=== PATIENT | female | born 1970 | race African-American/Black ===

== ENCOUNTER 2018-11-23 12:21 | Emergency (ER) | payer MEDICAID, OTHER ==
[~2018-11-23] VITALS: Ht 160 cm; Wt 90.7 kg
[2018-11-23 13:22] LABS: BASOPHILS % (AUTO) 1 % (0-10); EOSINOPHILS # (AUTO) 0.2 10^3/uL (0.0-0.3); EOSINOPHILS % (AUTO) 3 % (0-10); HEMATOCRIT 37 % (35-52); HEMOGLOBIN 12.7 G/DL (11.5-16.0); LYMPHOCYTES # (AUTO) 2.5 X 10^3 (1.0-4.0); LYMPHOCYTES % (AUTO) 46 % (12-44); MEAN CORPUSCULAR HEMOGLOBIN 30 PG (25-34); MEAN CORPUSCULAR HGB CONC 34 G/DL (32-36); MEAN CORPUSCULAR VOLUME 87 FL (80-99); MEAN PLATELET VOLUME 9.6 FL (7.4-10.4); MONOCYTES # (AUTO) 0.6 X 10^3 (0.0-1.0); MONOCYTES % (AUTO) 10 % (0-12); NEUTROPHILS # (AUTO) 2.2 X 10^3 (1.8-7.8); NEUTROPHILS % (AUTO) 40 % (42-75); PLATELET COUNT 380 10^3/uL (130-400); RED CELL DISTRIBUTION WIDTH 13.1 % (10.0-14.5); WHITE BLOOD COUNT 5.5 10^3/uL (4.3-11.0)
--- NOTE | 2018-11-23 13:24 | ED General ---
General Chief Complaint: Abdominal/GI Problems Stated Complaint: COUGH/VOMITING Nursing Triage Note: Ambulatory to rm 3. Pt reports vomiting x two weeks. Pt states, "everything I eat/drink I throw up." Pt reports only being able to keep cold foods/liquids down. Pt also reports cough for one month. Pt c/o clear mucous. Nursing Sepsis Screen: No Definite Risk Source of Information: Patient Exam Limitations: No Limitations History of Present Illness Date Seen by Provider: Nov 23, 2018 Time Seen by Provider: 13:23 Allergies and Home Medications Allergies Coded Allergies: aspirin (Verified Allergy, Unknown, swelling, 11/23/18) Past Cbxpsni-Mhckdb-Ykjduh Hx Patient Social History Alcohol Use: Denies Use Recreational Drug Use: No Smoking Status: Never a Smoker Recent Foreign Travel: No Contact w/Someone Who Travel: No Recent Infectious Disease Expo: No Recent Hopitalizations: No Physical Abuse: No Sexual Abuse: No Seasonal Allergies Seasonal Allergies: Yes Past Medical History Surgeries: Yes Tubal Ligation Respiratory: Yes Asthma Cardiac: Yes Hypertension Neurological: No Last Menstrual Period: Sep 22, 2018 DELI MANAGER History: Tubal Ligation Genitourinary: No Gastrointestinal: No Musculoskeletal: Yes Chronic Back Pain Endocrine: Yes Hypothyroidsim, Diabetes, Non-Insulin dep HEENT: No Cancer: No Psychosocial: Yes Anxiety, Depression Integumentary: No Blood Disorders: No Adverse Reaction/Blood Tranf: No Physical Exam Vital Signs Vital Signs - First Documented 11/23/18 12:43 Temp 98.0 Pulse 91 Resp 19 B/P (MAP) 139/93 (108) Pulse Ox 99 O2 Delivery Room Air Capillary Refill : Less Than 3 Seconds Height, Weight, BMI Height: 5'3.00" Weight: 200lbs. oz. 90.182225fa; BMI Method:Stated Progress/Results/Core Measures Suspected Sepsis Recent Fever Within 48 Hours: No Infection Criteria Present: None New/Unexplained Altered Menta: No Sepsis Screen: No Definite Risk SIRS Temperature:98.0 Pulse: 91 Respiratory Rate: 19 Laboratory Tests 11/23/18 13:00: White Blood Count 5.5 Blood Pressure 139 /93 Mean: 108 Laboratory Tests 11/23/18 13:00: Creatinine 0.96, Platelet Count 380, Total Bilirubin 0.2 Results/Orders Lab Results Laboratory Tests Test 11/23/18 13:00 11/23/18 13:30 Range/Units White Blood Count 5.5 4.3-11.0 10^3/uL Red Blood Count 4.24 L 4.35-5.85 10^6/uL Hemoglobin 12.7 11.5-16.0 G/DL Hematocrit 37 35-52 % Mean Corpuscular Volume 87 80-99 FL Mean Corpuscular Hemoglobin 30 25-34 PG Mean Corpuscular Hemoglobin Concent 34 32-36 G/DL Red Cell Distribution Width 13.1 10.0-14.5 % Platelet Count 380 130-400 10^3/uL Mean Platelet Volume 9.6 7.4-10.4 FL Neutrophils (%) (Auto) 40 L 42-75 % Lymphocytes (%) (Auto) 46 H 12-44 % Monocytes (%) (Auto) 10 0-12 % Eosinophils (%) (Auto) 3 0-10 % Basophils (%) (Auto) 1 0-10 % Neutrophils # (Auto) 2.2 1.8-7.8 X 10^3 Lymphocytes # (Auto) 2.5 1.0-4.0 X 10^3 Monocytes # (Auto) 0.6 0.0-1.0 X 10^3 Eosinophils # (Auto) 0.2 0.0-0.3 10^3/uL Basophils # (Auto) 0.0 0.0-0.1 10^3/uL Sodium Level 135 135-145 MMOL/L Potassium Level 3.8 3.6-5.0 MMOL/L Chloride Level 102 98-107 MMOL/L Carbon Dioxide Level 23 21-32 MMOL/L Anion Gap 10 5-14 MMOL/L Blood Urea Nitrogen 10 7-18 MG/DL Creatinine 0.96 0.60-1.30 MG/DL Estimat Glomerular Filtration Rate > 60 BUN/Creatinine Ratio 10 Glucose Level 238 H 70-105 MG/DL Calcium Level 9.7 8.5-10.1 MG/DL Corrected Calcium 9.8 8.5-10.1 MG/DL Total Bilirubin 0.2 0.1-1.0 MG/DL Aspartate Amino Transf (AST/SGOT) 19 5-34 U/L Alanine Aminotransferase (ALT/SGPT) 22 0-55 U/L Alkaline Phosphatase 85 40-136 U/L Total Protein 7.3 6.4-8.2 GM/DL Albumin 3.9 3.2-4.5 GM/DL Amylase Level 93 25-125 U/L Lipase 13 8-78 U/L Urine Color YELLOW Urine Clarity CLEAR Urine pH 6 5-9 Urine Specific [place] 1.020 1.016-1.022 Urine Protein 2+ H NEGATIVE Urine Glucose (UA) 3+ H NEGATIVE Urine Ketones NEGATIVE NEGATIVE Urine Nitrite POSITIVE H NEGATIVE Urine Bilirubin NEGATIVE NEGATIVE Urine Urobilinogen NORMAL NORMAL MG/DL Urine Leukocyte Esterase 2+ H NEGATIVE Urine RBC (Auto) 5+ H NEGATIVE Urine RBC 10-25 H /HPF Urine WBC 5-10 H /HPF Urine Squamous Epithelial Cells 10-25 H /HPF Urine Crystals NONE /LPF Urine Bacteria LARGE H /HPF Urine Casts NONE /LPF Urine Mucus NEGATIVE /LPF Urine Culture Indicated YES Micro Results Microbiology 11/23/18 Influenza Types A,B Antigen (BONNIE) - Final, Complete My Orders Orders - SEJAL PIERRE Comprehensive Metabolic Panel (11/23/18 13:10) Lipase (11/23/18 13:10) Amylase (11/23/18 13:10) Ua Culture If Indicated (11/23/18 13:10) Saline Lock/Iv-Start (11/23/18 13:10) Cbc With Automated Diff (11/23/18 13:10) Influenza A And B Antigens (11/23/18 13:10) Chest Pa/Lat (2 View) (11/23/18 13:22) Urine Culture (11/23/18 13:30) Vital Signs/I&O 11/23/18 12:43 Temp 98.0 Pulse 91 Resp 19 B/P (MAP) 139/93 (108) Pulse Ox 99 O2 Delivery Room Air Capillary Refill : Less Than 3 Seconds Blood Pressure Mean: 108 Departure Impression Primary Impression: Urinary tract infection Additional Impression: Bronchitis Disposition: 01 HOME, SELF-CARE Condition: Stable/Unchanged Departure-Patient Inst. Decision time for Depature: 14:58 Referrals: NO,LOCAL PHYSICIAN (PCP/Family) Primary Care Physician Patient Instructions: Acute Bronchitis in Adults, Urinary Tract Infection, Adult (DC) Add. Discharge Instructions: Take medications as directed. Drink plenty of clear liquids to stay hydrated and help flush out your kidneys and urinary tract. Return back to the emergency room for worsening symptoms or concerns as needed. Follow-up with her primary care provider within 1 week for recheck. All discharge instructions reviewed with patient and/or family. Voiced understanding. Scripts Albuterol Sulfate (VENTOLIN HFA) 1 Puff Puff 2 PUFF IH Q4H PRN for COUGH, #1 INHALER 1 PUFF = 90 MCG Prov: SEJAL PIERRE 11/23/18 Cefdinir (Cefdinir) 300 Mg Capsule 300 MG PO BID for 7 Days, #14 CAP Prov: SEJAL PIERRE 11/23/18 Methylprednisolone (Medrol) 4 Mg Tab.ds.pk 4 MG PO UD, #1 PKG Prov: SEJAL PIERRE 11/23/18 SEJAL PIERRE Nov 23, 2018 13:24
[2018-11-23 13:35] LABS: ALANINE AMINOTRANSFERASE 22 U/L (0-55); ALBUMIN 3.9 GM/DL (3.2-4.5); ALKALINE PHOSPHATASE 85 U/L (40-136); AMYLASE 93 U/L (25-125); BILIRUBIN,TOTAL 0.2 MG/DL (0.1-1.0); BUN/CREATININE RATIO 10; CALCIUM 9.7 MG/DL (8.5-10.1); CARBON DIOXIDE 23 MMOL/L (21-32); CHLORIDE 102 MMOL/L (98-107); CREATININE SERUM 0.96 MG/DL (0.60-1.30); GFR ESTIMATED > 60; GLUCOSE 238 MG/DL (70-105); LIPASE 13 U/L (8-78); POTASSIUM 3.8 MMOL/L (3.6-5.0); SODIUM 135 MMOL/L (135-145); TOTAL PROTEIN 7.3 GM/DL (6.4-8.2)
[2018-11-23 13:44] LABS: BILIRUBIN,URINE NEGATIVE (NEGATIVE); CLARITY,URINE CLEAR; COLOR,URINE YELLOW; GLUCOSE, URINE (UA) 3+ (NEGATIVE); KETONES,URINE NEGATIVE (NEGATIVE); LEUKOCYTE ESTERASE ,URINE 2+ (NEGATIVE); NITRITE,URINE POSITIVE (NEGATIVE); PH,URINE 6 (5-9); PROTEIN,URINE 2+ (NEGATIVE); UROBILINOGEN,URINE NORMAL (NORMAL)
[2018-11-23 13:56] LABS: BACTERIA,URINE LARGE /HPF
--- NOTE | 2018-11-23 14:29 | Diagnostic Imaging Report ---
EXAM: CHEST PA/LAT (2 VIEW) INDICATION: Cough. COMPARISON: None. FINDINGS: Normal heart size and pulmonary vascularity. No dense consolidation, pleural effusion or pneumothorax. No acute osseous findings. IMPRESSION: Negative chest. Dictated by: Dictated on workstation # [id number]
[2018-11-23] MEDS ORDERED: RT-ALBUINH IH (15:00)
[2018-11-23] MEDS ORDERED: METH4TAB PO (15:00)
[2018-11-23] MEDS ORDERED: CEFD300C3 PO (15:00)
[2018-11-23 15:07] VITALS: BP 146/109
== END 2018-11-23 15:12 | disposition home or self-care (01) ==
LOC: ER 12:24
DX: N39.0 Urinary tract infection, site not specified (principal); J40 Bronchitis, not specified as acute or chronic; J45.909 Unspecified asthma, uncomplicated; I10 Essential (primary) hypertension; E03.9 Hypothyroidism, unspecified; E11.9 Type 2 diabetes mellitus without complications; F41.9 Anxiety disorder, unspecified; F32.9 Major depressive disorder, single episode, unspecified; Z79.82 Long term (current) use of aspirin; Z98.51 Tubal ligation status
CPT/HCPCS: 36415; 71046; 80053; 81000; 82150; 83690; 85025; 87077; 87088; 87804

== ENCOUNTER 2019-02-14 20:22 | Emergency (ER) | payer MEDICAID ==
[~2019-02-14] VITALS: Ht 160 cm; Wt 90.7 kg
[~2019-02-14 20:22] MED LIST: CEFD300C3 PO; METH4TAB PO; RT-ALBUINH IH
--- OUTSIDE RECORDS SUMMARY | 2019-02-14 20:27 | XMS REPORT | Continuity of Care Document ---
Author Organization Unknown Address Unknown Allergies Active Description Code Type Severity Reaction Onset Reported/Identified Relationship to Patient Clinical Status Yes aspirin [id number] Drug Allergy Unknown swelling 11/23/2018 Medications There is no data. Problems Date Dx Coded Attending Type Code Diagnosis Diagnosed By 11/23/2018 SEJAL PIERRE Ot E03.9 HYPOTHYROIDISM, UNSPECIFIED 11/23/2018 ARSENIO PIERREIS Ot E11.9 TYPE 2 DIABETES MELLITUS WITHOUT COMPLIC 11/23/2018 SEJAL PIERRE Ot F32.9 MAJOR DEPRESSIVE DISORDER, SINGLE EPISOD 11/23/2018 IGNACIO SEJAL Ot F41.9 ANXIETY DISORDER, UNSPECIFIED 11/23/2018 IGNACIO SEJAL Ot I10 ESSENTIAL (PRIMARY) HYPERTENSION 11/23/2018 IGNACIO SEJAL Ot J40 BRONCHITIS, NOT SPECIFIED ACUTE OR CH 11/23/2018 IGNACIO, SEJAL Ot J45.909 UNSPECIFIED ASTHMA, UNCOMPLICATED 11/23/2018 IGNACIO SEJAL Ot N39.0 URINARY TRACT INFECTION, SITE NOT SPECIF 11/23/2018 IGNACIO SEJAL Ot R11.10 VOMITING, UNSPECIFIED 11/23/2018 IGNACIO SEJAL Ot 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 11/23/2018 IGNACIO SEJAL Ot Z98.51 TUBAL LIGATION STATUS 11/25/2018 IGNACIO SEJAL Ot E03.9 HYPOTHYROIDISM, UNSPECIFIED 11/25/2018 BERNDAYA SEJAL Ot E11.9 TYPE 2 DIABETES MELLITUS WITHOUT COMPLIC 11/25/2018 IGNACIO SEJAL Ot F32.9 MAJOR DEPRESSIVE DISORDER, SINGLE EPISOD 11/25/2018 IGNACIO SEJAL Ot F41.9 ANXIETY DISORDER, UNSPECIFIED 11/25/2018 BERNOT, SEJAL Ot I10 ESSENTIAL (PRIMARY) HYPERTENSION 11/25/2018 BERNDAYA, SEJAL Ot J40 BRONCHITIS, NOT SPECIFIED ACUTE OR CH 11/25/2018 IGNACIO SEJAL Ot J45.909 UNSPECIFIED ASTHMA, UNCOMPLICATED 11/25/2018 SEJAL PIERRE Ot N39.0 URINARY TRACT INFECTION, SITE NOT SPECIF 11/25/2018 SEJAL PIERRE Ot R11.10 VOMITING, UNSPECIFIED 11/25/2018 SEJAL PIERRE Ot 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 11/25/2018 SEJAL PIERRE Ot Z98.51 TUBAL LIGATION STATUS Procedures There is no data. Results Test Result Range Complete blood count (CBC) with automated white blood cell (WBC) differential - 11/23/18 13:00 Blood leukocytes automated count (number/volume) 5.5 10*3/uL 4.3-11.0 Blood erythrocytes automated count (number/volume) 4.24 10*6/uL 4.35-5.85 Venous blood hemoglobin measurement (mass/volume) 12.7 g/dL 11.5-16.0 Blood hematocrit (volume fraction) 37 % 35-52 Automated erythrocyte mean corpuscular volume 87 [foz_us] 80-99 Automated erythrocyte mean corpuscular hemoglobin (mass per erythrocyte) 30 pg 25-34 Automated erythrocyte mean corpuscular hemoglobin concentration measurement (mass/volume) 34 g/dL 32-36 Automated erythrocyte distribution width ratio 13.1 % 10.0- 14.5 Automated blood platelet count (count/volume) 380 10*3/uL 130-400 Automated blood platelet mean volume measurement 9.6 [foz_us] 7.4-10.4 Automated blood neutrophils/100 leukocytes 40 % 42-75 Automated blood lymphocytes/100 leukocytes 46 % 12-44 Blood monocytes/100 leukocytes 10 % 0-12 Automated blood eosinophils/100 leukocytes 3 % 0-10 Automated blood basophils/100 leukocytes 1 % 0-10 Blood neutrophils automated count (number/volume) 2.2 10*3 1.8-7.8 Blood lymphocytes automated count (number/volume) 2.5 10*3 1.0-4.0 Blood monocytes automated count (number/volume) 0.6 10*3 0.0- 1.0 Automated eosinophil count 0.2 10*3/uL 0.0-0.3 Automated blood basophil count (count/volume) 0.0 10*3/uL 0.0-0.1 Comprehensive metabolic panel - 11/23/18 13:00 Serum or plasma sodium measurement (moles/volume) 135 mmol/L 135-145 Serum or plasma potassium measurement (moles/volume) 3.8 mmol/L 3.6-5.0 Serum or plasma chloride measurement (moles/volume) 102 mmol/L 98-107 Carbon dioxide 23 mmol/L 21-32 Serum or plasma anion gap determination (moles/volume) 10 mmol/L 5-14 Serum or plasma urea nitrogen measurement (mass/volume) 10 mg/dL 7-18 Serum or plasma creatinine measurement (mass/volume) 0.96 mg/dL 0.60-1.30 Serum or plasma urea nitrogen/creatinine mass ratio 10 NRG Serum or plasma creatinine measurement with calculation of estimated glomerular filtration rate > NRG Serum or plasma glucose measurement (mass/volume) 238 mg/dL 70-105 Serum or plasma calcium measurement (mass/volume) 9.7 mg/dL 8.5-10.1 Serum or plasma total bilirubin measurement (mass/volume) 0.2 mg/dL 0.1-1.0 Serum or plasma alkaline phosphatase measurement (enzymatic activity/volume) 85 U/L 40-136 Serum or plasma aspartate aminotransferase measurement (enzymatic activity/volume) 19 U/L 5-34 Serum or plasma alanine aminotransferase measurement (enzymatic activity/volume) 22 U/L 0-55 Serum or plasma protein measurement (mass/volume) 7.3 g/dL 6.4-8.2 Serum or plasma albumin measurement (mass/volume) 3.9 g/dL 3.2-4.5 CALCIUM CORRECTED 9.8 mg/dL 8.5-10.1 Serum or plasma amylase measurement (enzymatic activity/volume) - 11/23/18 13:00 Serum or plasma amylase measurement (enzymatic activity/volume) 93 U/L 25-125 Lipase - 11/23/18 13:00 Lipase 13 U/L 8-78 Influenza virus A and B antigen detection - 11/23/18 13:03 FLU RESULT NEGATIVE FOR INFLUENZA A AND B ANTIGENS BY IA NRG Complete urinalysis with reflex to culture - 11/23/18 13:30 Urine color determination YELLOW NRG Urine clarity determination CLEAR NRG Urine pH measurement by test strip 6 5-9 Specific gravity of urine by test strip 1.020 1.016-1.022 Urine protein assay by test strip, semi-quantitative 2+ NEGATIVE Urine glucose detection by automated test strip 3+ NEGATIVE Erythrocytes detection in urine sediment by light microscopy 5+ NEGATIVE Urine ketones detection by automated test strip NEGATIVE NEGATIVE Urine nitrite detection by test strip POSITIVE NEGATIVE Urine total bilirubin detection by test strip NEGATIVE NEGATIVE Urine urobilinogen measurement by automated test strip (mass/volume) NORMAL NORMAL Urine leukocyte esterase detection by dipstick 2+ NEGATIVE Automated urine sediment erythrocyte count by microscopy (number/high power field) [HPF] NRG Automated urine sediment leukocyte count by microscopy (number/high power field) [HPF] NRG Bacteria detection in urine sediment by light microscopy LARGE NRG Squamous epithelial cells detection in urine sediment by light microscopy 10-25 NRG Crystals detection in urine sediment by light microscopy NONE NRG Casts detection in urine sediment by light microscopy NONE NRG Mucus detection in urine sediment by light microscopy NEGATIVE NRG Complete urinalysis with reflex to culture YES NRG Bacterial urine culture - 11/23/18 13:30 Bacterial urine culture [id number] NRG COLONY COUNT >100,000/ML NRG FTX;REPORTABLE SENSITIVITY REPORTED 11/26/18 08:05 NRG FREE TEXT ENTRY 2 ID REPORTED 11/25/18 14:05 NRG RML Sensitivity Panel - 11/23/18 13:30 Gentamicin susceptibility test by minimum inhibitory concentration <= NRG Trimethoprim/sulfamethoxazole susceptibility test by minimum inhibitoryconcentration > NRG Levofloxacin susceptibility test by minimum inhibitory concentration <= NRG Ampicillin susceptibility test by minimum inhibitory concentration > NRG Cefazolin susceptibility test by minimum inhibitory concentration 2 NRG Ceftriaxone susceptibility test by minimum inhibitory concentration <= NRG Ciprofloxacin susceptibility test by minimum inhibitory concentration <= NRG Meropenem susceptibility test by minimum inhibitory concentration <= NRG Nitrofurantoin susceptibility test by minimum inhibitory concentration <= NRG Amoxicillin and clavulanate potassium susc BONNIE <= NRG Encounters ACCT No. Visit Date/Time Discharge Status Pt. Type Provider Facility Loc./Unit Complaint [id number] 11/23/2018 12:24:00 11/23/2018 15:12:00 DIS Emergency SEJAL PIERRE [facility] ER COUGH/VOMITING
--- NOTE | 2019-02-14 20:37 | NUR ---
PT REPORTS TAKES LOSARTAN FOR BP 1 DAILY. STATES SHE TOOK AN EXTRA PILL TODAY. DENIES KNOWING DOSE.
[2019-02-14] MEDS ORDERED: diphenhydrAMINE 50 MG/ML INJ (BENADRYL) IVP ONE (21:15)
[2019-02-14] MEDS ORDERED: PROCHLORPERAZINE 10 MG/2ML INJ (COMPAZINE) IM ONE (21:15)
[2019-02-14] MEDS ORDERED: cloNIDine 0.1 MG (CATAPRES) TAB PO ONE (21:15)
[2019-02-14] MEDS ORDERED: diphenhydrAMINE 50 MG/ML INJ (BENADRYL) IM ONE (21:45)
--- NOTE | 2019-02-14 22:05 | ED Headache ---
General Chief Complaint: Head/Cervical Problems Stated Complaint: HIGH BLOOD PRESSURE (148/101), DIABETIC Nursing Triage Note: PT TO ED W/ C/O HEADACHE ONSET THIS AM. ALSO REPORTS ELEVATED BP. REPORTS HAS TAKEN MEDS EXTRA BP MEDS ET MONITORED BP EVERY HOUR ET DENIES IMPROVEMENT. Nursing Sepsis Screen: No Definite Risk Source: patient Exam Limitations: no limitations History of Present Illness Date Seen by Provider: Feb 14, 2019 Time Seen by Provider: 21:08 Initial Comments 49-year-old female who presents to emergency room with complaints of a headache that started this morning. She also reports that she's had elevated blood pressure throughout the day. She reports taking her blood pressure medication and having no change in her blood pressure. She reports her blood pressure at home was 148/101. She is alert and oriented on arrival to the emergency room. Allergies and Home Medications Allergies Coded Allergies: aspirin (Verified Allergy, Unknown, swelling, 11/23/18) Home Medications Albuterol Sulfate 1 Puff Puff, 2 PUFF IH Q4H PRN for COUGH 1 PUFF = 90 MCG Prescribed by: SEJAL PIERRE on 11/23/18 1500 Cefdinir 300 Mg Capsule, 300 MG PO BID Prescribed by: SEJAL PIERRE on 11/23/18 1500 Methylprednisolone 4 Mg Tab.ds.pk, 4 MG PO UD Prescribed by: SEJAL PIERRE on 11/23/18 1500 Patient Home Medication List Home Medication List Reviewed: Yes Review of Systems Review of Systems Constitutional: see HPI; No chills, No fever Psychiatric/Neurological: See HPI, Headache All Other Systems Reviewed Negative Unless Noted: Yes Past Twsbeqi-Dufhac-Wxmpjj Hx Past Med/Social Hx: Reviewed Nursing Past Med/Soc Hx Patient Social History Alcohol Use: Denies Use Recreational Drug Use: No Smoking Status: Never a Smoker Recent Foreign Travel: No Contact w/Someone Who Travel: No Recent Infectious Disease Expo: No Recent Hopitalizations: No Seasonal Allergies Seasonal Allergies: Yes Past Medical History Surgeries: Yes Tubal Ligation Respiratory: Yes Asthma Cardiac: Yes Hypertension Neurological: No RELIGION INSTRUCTOR History: Tubal Ligation Genitourinary: No Gastrointestinal: No Musculoskeletal: Yes Chronic Back Pain Endocrine: Yes Diabetes, Insulin dep, Hypothyroidsim HEENT: No Cancer: No Psychosocial: Yes Anxiety, Depression Integumentary: No Blood Disorders: No Adverse Reaction/Blood Tranf: No Family Medical History Reviewed Nursing Family Hx Physical Exam Vital Signs Vital Signs - First Documented 02/14/19 20:32 Temp 97.3 Pulse 105 Resp 20 B/P (MAP) 163/107 (125) Pulse Ox 98 O2 Delivery Room Air Capillary Refill : Less Than 3 Seconds Height, Weight, BMI Height: 5'3.00" Weight: 200lbs. oz. 90.568214ck; BMI Method:Stated General Appearance: WD/WN, no apparent distress Cardiovascular: normal peripheral pulses, regular rate, rhythm, no edema, no gallop, no JVD, no murmur Respiratory: chest non-tender, lungs clear, normal breath sounds, no respiratory distress, no accessory muscle use Gastrointestinal: normal bowel sounds, non tender, soft, no organomegaly, no pulsatile mass Psychiatric: alert, oriented x 3 Crainal Nerves: normal hearing, normal speech, PERRL Coordination/Gait: normal finger to nose, normal gait Motor/Sensory: no motor deficit, no sensory deficit Skin: normal color, warm/dry Progress/Results/Core Measures Results/Orders My Orders Orders - SEJAL PIERRE Prochlorperazine Injection (Compazine In (02/14/19 21:15) Clonidine Tablet (Catapres Tablet) (02/14/19 21:15) Diphenhydramine Injection (Benadryl Inje (02/14/19 21:45) Medications Given in ED Vital Signs/I&O 02/14/19 02/14/19 20:32 22:44 Temp 97.3 97.3 Pulse 105 105 Resp 20 18 B/P (MAP) 163/107 (125) 144/85 (104) Pulse Ox 98 100 O2 Delivery Room Air Room Air Blood Pressure Mean: 125 Progress Progress Note : Time: 22:04 Progress Note I have seen and evaluated the patient. Her blood pressure has improved, she no longer has a headache after medication administration. She agrees with plan of care, plans for discharge, return precautions were given. Departure Impression Primary Impression: Headache Additional Impression: Labile hypertension Disposition: 01 HOME, SELF-CARE Condition: Stable/Unchanged Departure-Patient Inst. Decision time for Depature: 22:05 Referrals: NO,LOCAL PHYSICIAN (PCP/Family) Primary Care Physician Patient Instructions: High Blood Pressure in Adults, Headache, Adult (DC) Add. Discharge Instructions: Resume your home medication as previously prescribed. Follow-up with your [facility] care provider within 1 week for recheck. Return back to the emergency room for worsening symptoms or concerns as needed. All discharge instructions reviewed with patient and/or family. Voiced understanding. SEJAL PIERRE Feb 14, 2019 22:05
[2019-02-14 22:44] VITALS: BP 144/85
== END 2019-02-14 22:44 | disposition home or self-care (01) ==
LOC: EDUNIT# 20:22 → ER 20:23
DX: R51 Headache (principal); I10 Essential (primary) hypertension; J45.909 Unspecified asthma, uncomplicated; E11.9 Type 2 diabetes mellitus without complications; E03.9 Hypothyroidism, unspecified; F41.9 Anxiety disorder, unspecified; F32.9 Major depressive disorder, single episode, unspecified; Z88.6 Allergy status to analgesic agent; Z79.52 Long term (current) use of systemic steroids; Z98.51 Tubal ligation status
CPT/HCPCS: 96372; 99284